=== PATIENT | male | born 1995 | race Caucasian/White ===

== ENCOUNTER 2018-09-02 11:56 | Emergency (ER) | payer OTHER ==
[2018-09-02] MEDS ORDERED: NACL 0.9% 500 ML IR ONE (12:22)
--- NOTE | 2018-09-02 12:56 | Emergency Department Report ---
ED Laceration HPI - HPI Chief Complaint: Wound/Laceration Stated Complaint: HEAD INJURY Time Seen by Provider: 09/02/18 12:30 Occurred When: Today Location: Head Severity: mild Laceration Symptoms: No Foreign Body Sensation, No Numbness, No Weakness, No Pain Other History: Patient is a 22-year-old male that since emergency room with complaints of occipital scalp laceration. Patient states the pain is a 1 out of 10. Patient states the bleeding was controlled with direct pressure. Patient's tetanus is up-to-date. Patient denies fever and chills. Patient denies loss of consciousness. Patient denies headache. Patient denies blurry vision. She denies chest pain shortness of breath. Patient denies dizziness. ED Review of Systems ROS: Stated complaint: HEAD INJURY Other details as noted in HPI Constitutional: denies: chills, fever Eyes: denies: eye pain, eye discharge, vision change ENT: denies: ear pain, throat pain Respiratory: denies: cough, shortness of breath, wheezing Cardiovascular: denies: chest pain, palpitations Endocrine: no symptoms reported Gastrointestinal: denies: abdominal pain, nausea, diarrhea Genitourinary: denies: urgency, dysuria Musculoskeletal: denies: back pain, joint swelling, arthralgia Skin: denies: rash, lesions Neurological: denies: headache, weakness, paresthesias Psychiatric: denies: anxiety, depression Hematological/Lymphatic: denies: easy bleeding, easy bruising ED Past Medical Hx - Past Medical History Previous Medical History?: No - Surgical History Past Surgical History?: No Additional Surgical History: Abdominal valve surgery as infant - Family History Family history: no significant - Social History Smoking Status: Never Smoker Substance Use Type: None - Medications Home Medications: Home Medications Medication Instructions Recorded Confirmed Last Taken Type Sulfamethoxazole/Trimethoprim 1 each PO BID 5 Days #10 tablet 09/02/18 Unknown Rx [Bactrim Ds Tablet] Laceration Physical Exam - Exam General: Vital signs noted. No distress. Alert and acting appropriately. The patient appeared well nourished and normally developed. Vital signs as documented. Head exam is unremarkable except for 1.5 cm V-shaped laceration to the occipital region of the scalp. Neuro exam normal. Pupils are equal and reactive. Lungs are clear to auscultation and percussion. Cardiac exam reveals the Rhythm is regular. First and second heart sounds normal. No murmurs, rubs or gallops. . Laceration Location: Head Laceration Exam: No Foreign Body, No Exposed Tendon, Vessel, or Nerve, No Tendon Injury, No Normal Distal CMS ED Course Vital Signs 09/02/18 09/02/18 12:04 12:33 Temperature 98.5 F Pulse Rate 72 Respiratory 18 18 Rate Blood Pressure 121/85 O2 Sat by Pulse 99 99 Oximetry - Reevaluation(s) Reevaluation #1: Laceration closed with 3 chuyita. See procedure note. Discussed wound care with patient. Patient given discharge instructions. Patient voiced understanding of all instructions. Patient is stable for discharge. 09/02/18 12:56 - Laceration /Wound Repair Head Wound Location: head Wound Length (cm): 1 (1.5 cm) Wound's Depth, Shape: superficial Wound Explored: clean Irrigated w/ Saline (ccs): 200 Betadine Prep?: Yes Sterile Dressing Applied?: Yes Progress: 1.5 cm scalp laceration closed with 3 chuyita. Edges well approximated. Prior to stapling the wound was irrigated with saline and cleaned with Hibiclens. Patient tolerated procedure well. Sterile dressing applied. Tetanus is up-to-date. 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 Laceration closed without difficulties. See procedure note. Patient tolerated procedure well. Patient will be discharged home. Patient given discharge atrophy patient given wound care instructions. Patient did not require a head CT. - Differential Diagnosis scalp laceration Critical care attestation.: If time is entered above; I have spent that time in minutes in the direct care of this critically ill patient, excluding procedure time. ED Disposition Clinical Impression: Scalp laceration Qualifiers: Encounter type: initial encounter Qualified Code(s): S01.01XA - Laceration without foreign body of scalp, initial encounter Disposition: TO HOME OR SELFCARE Is pt being admited?: No Does the pt Need Aspirin: No Condition: Stable Instructions: Laceration (ED), Staple Care (ED) Additional Instructions: Patient to follow up with primary care in 2-3 days. Patient to have his chuyita removed in 5-7 days. Patient to keep area clean. Patient to take antibiotics as instructed. Patient take Tylenol or ibuprofen when necessary for pain. Patient to look for signs of infection. Patient to return if condition worsens. Prescriptions: Sulfamethoxazole/Trimethoprim [Bactrim Ds Tablet] 1 each PO BID 5 Days #10 tablet Referrals: PRIMARY CARE, [Primary Care Provider] - 3-5 Days Forms: Work/School Release Form(ED) Time of Disposition: 13:00
[2018-09-02 13:18] VITALS: BP 120/76
== END 2018-09-02 13:10 | disposition home or self-care (01) ==
LOC: ED 11:56
DX: S01.01XA Laceration without foreign body of scalp, initial encounter (principal); W45.8XXA Other foreign body or object entering through skin, initial encounter; Y93.89 Activity, other specified; Y92.89 Other specified places as the place of occurrence of the external cause; Y99.8 Other external cause status
CPT/HCPCS: 99283